=== PATIENT | male | born 1960 | race Caucasian/White ===

== ENCOUNTER 2019-06-05 16:00 | Emergency (ER) | payer BC ==
[2019-06-05] MEDS ORDERED: Ibuprofen 800 MG TAB ONE (17:30)
--- NOTE | 2019-06-05 17:41 | RAD ---
XR Chest 1 View Portable History: Cough Comparison: Radiograph 2016 Findings: Lungs are clear. No pneumothorax. No effusion. No acute osseous abnormality. Multiple midli ne sternotomy wires. Impression: No acute intrathoracic abnormality.
== END 2019-06-05 18:00 | disposition home or self-care (01) ==
LOC: MADERS 16:00
DX: J06.9 Acute upper respiratory infection, unspecified (principal); F17.210 Nicotine dependence, cigarettes, uncomplicated; Z79.82 Long term (current) use of aspirin; Z79.84 Long term (current) use of oral hypoglycemic drugs; Z79.899 Other long term (current) drug therapy
CPT/HCPCS: 71045; 87804; 93005; J7620

== ENCOUNTER 2020-10-02 08:44 | Outpatient (CLI) | payer BC ==
[2020-10-02 09:25] LABS: ALT (SGPT) 17 U/L (8-55); AST (SGOT) 13 U/L (5-34); Albumin 4.3 g/dL (3.4-4.8); Alkaline Phosphatase 43 U/L (40-110); Anion Gap 15 mmol/L (10-20); BUN (Urea Nitrogen) 16 mg/dL (8.4-25.7); Bilirubin, Direct 0.3 mg/dL (0.1-0.3); Bilirubin, Total 0.5 mg/dL (0.2-1.2); Calc. Creatinine Clearance 0 mL/min (70-130); Calcium 9.2 mg/dL (7.8-10.44); Carbon Dioxide 23 mmol/L (23-31); Chloride 103 mmol/L (98-107); Cholesterol 113 mg/dl (< 200 Desired); Glucose 119 mg/dL (80-115); HDL Cholesterol 38 mg/dL (>60 Neg Risk); LDL Cholesterol, Calculated 53 mg/dL; Potassium 4.8 mmol/L (3.5-5.1); Protein, Total 6.9 g/dL (5.8-8.1); Sodium 136 mmol/L (136-145); Triglycerides 109 mg/dL (Less than 150)
== END 2020-10-02 08:45 | disposition home or self-care (01) ==
LOC: MADLAB 08:44
DX: E78.00 Pure hypercholesterolemia, unspecified (principal); Z95.1 Presence of aortocoronary bypass graft
CPT/HCPCS: 36415; 80048; 80061; 80076

== ENCOUNTER 2020-11-03 10:54 | Emergency (ER) | payer BC ==
[2020-11-03] MEDS ORDERED: Boostrix 0.5 ML (Tdap) VIAL ONE (11:32)
== END 2020-11-03 11:51 | disposition home or self-care (01) ==
LOC: MADERS 10:54
DX: S61.412A Laceration without foreign body of left hand, initial encounter (principal); E11.9 Type 2 diabetes mellitus without complications; E78.5 Hyperlipidemia, unspecified; F17.210 Nicotine dependence, cigarettes, uncomplicated; Z79.82 Long term (current) use of aspirin; Z79.84 Long term (current) use of oral hypoglycemic drugs; Z79.899 Other long term (current) drug therapy; Z86.79 Personal history of other diseases of the circulatory system; W45.8XXA Other foreign body or object entering through skin, initial encounter
CPT/HCPCS: 12002; 90471; 90715

== ENCOUNTER 2022-03-19 15:17 | Emergency (ER) | payer BC ==
[2022-03-19] MEDS ORDERED: traMADol HCl 50 MG TAB ONE (17:51)
[2022-03-19] MEDS ORDERED: Bacitracin 1 PK ONE (17:52)
[2022-03-19] MEDS ORDERED: Ibuprofen 200 MG TAB ONE (17:52)
== END 2022-03-19 18:02 | disposition home or self-care (01) ==
LOC: MADERS 15:17
DX: S83.92XA Sprain of unspecified site of left knee, initial encounter (principal); E11.9 Type 2 diabetes mellitus without complications; F17.210 Nicotine dependence, cigarettes, uncomplicated; E78.5 Hyperlipidemia, unspecified; Z79.84 Long term (current) use of oral hypoglycemic drugs; Z79.82 Long term (current) use of aspirin; Z79.899 Other long term (current) drug therapy; W18.30XA Fall on same level, unspecified, initial encounter

== ENCOUNTER 2024-03-11 18:37 | Emergency (ER) | payer BC ==
[2024-03-11] MEDS ORDERED: Ipratropium/Albuterol 3 ML NEB ONE (19:10)
[2024-03-11 19:51] LABS: SARS-CoV-2 E Target Negative; SARS-CoV-2 N2 Target Negative; SARS-CoV-2 NAA Rapid Test Not Detected (NotDetected); SARS-CoV-2 RdRP gene Negative
[2024-03-11] MEDS ORDERED: Benzonatate 100 MG CAP ONE (20:28)
[2024-03-11] MEDS ORDERED: Doxycycline 100 MG CAP ONE (20:28)
[2024-03-11] MEDS ORDERED: Albuterol 2.5 MG (3 mL) NEB ONE (20:28)
[2024-03-11] MEDS ORDERED: predniSONE 20 MG TAB ONE (20:28)
== END 2024-03-11 20:56 | disposition home or self-care (01) ==
LOC: MADERS 18:37
DX: J44.1 Chronic obstructive pulmonary disease with (acute) exacerbation (principal); I10 Essential (primary) hypertension; E78.00 Pure hypercholesterolemia, unspecified; E11.9 Type 2 diabetes mellitus without complications; K21.9 Gastro-esophageal reflux disease without esophagitis; F17.210 Nicotine dependence, cigarettes, uncomplicated; Z79.84 Long term (current) use of oral hypoglycemic drugs; Z79.899 Other long term (current) drug therapy
CPT/HCPCS: 71046; 87804; J7512; J7611; J7620; U0002

== ENCOUNTER 2025-05-11 09:16 | Outpatient (CLI) | payer BC ==
[2025-05-11 10:05] LABS: ALT (SGPT) 18 U/L (Less than 45); AST (SGOT) 16 U/L (11-34); Albumin 4.4 g/dL (3.1-4.5); Alkaline Phosphatase 49 U/L (40-110); Anion Gap 19 mmol/L (10-20); BUN (Urea Nitrogen) 14 mg/dL (8.4-25.7); Bilirubin, Direct 0.2 mg/dL (0.1-0.3); Bilirubin, Total 0.5 mg/dL (0.3-1.2); Calc. Creatinine Clearance 0 mL/min (70-130); Calcium 9.9 mg/dL (7.8-10.44); Carbon Dioxide 23 mmol/L (23-31); Cardiac Risk 3.4 (Less than 4.5); Chloride 105 mmol/L (98-107); Cholesterol 141 mg/dl (< 200 Desired); Glucose 180 mg/dL (80-115); HDL Cholesterol 41 mg/dL (>60 Neg Risk); LDL Cholesterol, Calculated 61 mg/dL; Potassium 4.9 mmol/L (3.5-5.1); Sodium 142 mmol/L (136-145); Triglycerides 193 mg/dL (Less than 150)
== END 2025-05-11 09:17 | disposition home or self-care (01) ==
LOC: MADLAB 09:16
PROVIDERS: ATTEND Internal Medicine Cardiovascular Disease
DX: E11.9 Type 2 diabetes mellitus without complications (principal)
CPT/HCPCS: 36415; 80048; 80061; 80076; 83036

== ENCOUNTER 2025-06-27 21:03 | Emergency (ER) | payer BC ==
[2025-06-27 21:57] LABS: Hematocrit 47.4 % (42.0-52.0); Hemoglobin 15.2 g/dL (14.0-18.0); Mean Corpuscular Hemoglobin 31.9 pg (27.0-31.0); Mean Corpuscular Volume 99.5 fl (78.0-98.0); Platelet Count 281 10x3/uL (130-400); Red Blood Cell (RBC) Count 4.76 mill/uL (4.70-6.10); White Blood Cell (WBC) Count 7.4 10x3/uL (4.8-10.8)
[2025-06-27] MEDS ORDERED: Ondansetron PF 4 MG/2 ML Vial ONE ×2 (21:58→23:03)
[2025-06-27 22:07] LABS: MDiff Complete? YES
[2025-06-27 22:17] LABS: ALT (SGPT) 10 U/L (Less than 45); AST (SGOT) 13 U/L (11-34); Albumin 4.1 g/dL (3.1-4.5); Alkaline Phosphatase 49 U/L (40-110); Anion Gap 17 mmol/L (10-20); BUN (Urea Nitrogen) 8 mg/dL (8.4-25.7); Bilirubin, Total 0.3 mg/dL (0.3-1.2); Calc. Creatinine Clearance 0 mL/min (70-130); Calcium 8.7 mg/dL (7.8-10.44); Carbon Dioxide 22 mmol/L (23-31); Chloride 103 mmol/L (98-107); Globulin 2.7 g/dL (2.4-3.5); Glucose 178 mg/dL (80-115); Lipase 33 U/L (8-78); Potassium 3.6 mmol/L (3.5-5.1); Sodium 138 mmol/L (136-145)
== END 2025-06-27 23:34 | disposition home or self-care (01) ==
LOC: MADERS 21:03
DX: J06.9 Acute upper respiratory infection, unspecified (principal); R11.2 Nausea with vomiting, unspecified; I25.10 Atherosclerotic heart disease of native coronary artery without angina pectoris; I10 Essential (primary) hypertension; E11.9 Type 2 diabetes mellitus without complications; E78.00 Pure hypercholesterolemia, unspecified; K21.9 Gastro-esophageal reflux disease without esophagitis; F17.210 Nicotine dependence, cigarettes, uncomplicated; Z79.82 Long term (current) use of aspirin; Z79.84 Long term (current) use of oral hypoglycemic drugs; Z79.899 Other long term (current) drug therapy
CPT/HCPCS: 71046; 80053; 83690; 85025; 87428; 93005; 96374; J2405; J7030